=== PATIENT | male | born 1970 | race Caucasian/White ===

== ENCOUNTER 2019-08-25 17:32 | Emergency (ER) | payer BC ==
--- NOTE | 2019-08-25 19:41 | EDM.PDOC ---
ED HPI GENERAL MEDICAL PROBLEM - General Chief Complaint: Upper Extremity Injury/Pain Stated Complaint: BLOOD CLOT IN LEFT ARM Time Seen by Provider: 08/25/19 18:52 Source of Information: Reports: Patient History Limitations: Reports: No Limitations - History of Present Illness INITIAL COMMENTS - FREE TEXT/NARRATIVE: The patient presents with left arm pain and a blood clot in his arm. He said last night he started having an aching pain in his left upper arm. He does not remember injuring his arm in any way. He has no swelling. He has no fever, chills, cough, congestion, runny nose, chest pain or shortness of breath. He did feel anxious with this last night. 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 His also had a DVT. He was told it was superficial though and put on xarelto. He was looking for a second opinion. Onset: Sudden Duration: Day(s): (Last night) Location: Reports: Upper Extremity, Left (upper arm) Quality: Reports: Ache Severity: Moderate Improves with: Reports: None Worsens with: Reports: None Associated Symptoms: Reports: No Other Symptoms left upper arm Pain Score (Numeric/FACES): 6 - Related Data Allergies Allergy/AdvReac Type Severity Reaction Status Date / Time No Known Allergies Allergy Verified 08/25/19 18:10 Home Meds: Home Meds . [No Known Home Meds] 08/25/19 [History] Past Medical History Respiratory History: Reports: Sleep Apnea Hematologic History: Reports: Other (See Below) Other Hematologic History: factor 5 deficiency Social & Family History - Tobacco Use Smoking Status *Q: Never Smoker - Caffeine Use Caffeine Use: Reports: None - Recreational Drug Use Recreational Drug Use: No Review of Systems - Review of Systems Review Of Systems: See Below Constitutional: Reports: No Symptoms Eyes: Reports: No Symptoms Ears: Reports: No Symptoms Nose: Reports: No Symptoms Mouth/Throat: Reports: No Symptoms Respiratory: Reports: No Symptoms Cardiovascular: Reports: No Symptoms GI/Abdominal: Reports: No Symptoms Genitourinary: Reports: No Symptoms Musculoskeletal: Reports: Other (Left upper arm pain but no edema) ED EXAM, GENERAL - Physical Exam Exam: See Below Exam Limited By: No Limitations General Appearance: Alert, No Apparent Distress Ears: Normal External Exam Nose: Normal Inspection Head: Atraumatic, Normocephalic Neck: Normal Inspection, Supple, Non-Tender Respiratory/Chest: No Respiratory Distress, Lungs Clear, Normal Breath Sounds Cardiovascular: Regular Rate, Rhythm, No Edema, No Murmur GI/Abdominal: Soft, Non-Tender, No Organomegaly, No Mass Back Exam: Normal Inspection Extremities: Other (Mild pain upon palpation to the left upper inner arm. No palpable lesion noted. No edema in his left arm and good sensation and pulses distally.) Course - Vital Signs Last Recorded V/S: Last Vital Signs Temp 97.3 F 08/25/19 18:04 Pulse 60 08/25/19 18:04 Resp 19 08/25/19 18:04 BP 135/91 H 08/25/19 18:04 Pulse Ox 99 08/25/19 18:04 - Re-Assessments/Exams Free Text/Narrative Re-Assessment/Exam: 08/25/19 20:06 I was able to get the US report and it shows occlusive thrombus in the left basilic vein consistent with SVT. Otherwise the left internal jugular, subclavian, axillary, brachial, radial and ulnar veins are patent negative thrombus. The cephalic vein is also patent. I looked at the US myself and it appears the whole basilic vein is occluded. Given that and his history of factor V lieden in the family his PA today put him on xarelto. I feel that is the right call. I will have him follow up with Dr Morales. Departure - Departure Time of Disposition: 20:10 Disposition: Home, Self-Care 01 Condition: Good Clinical Impression: Superficial venous thrombosis of left arm - Discharge Information *PRESCRIPTION DRUG MONITORING PROGRAM REVIEWED*: No *COPY OF PRESCRIPTION DRUG MONITORING REPORT IN PATIENT NICK: No Referrals: Rolo Merrill MD [Primary Care Provider] - 1 Week Forms: ED Department Discharge Additional Instructions: Take the xarelto as prescribed. Follow up with Dr Morales within a week. Put warm or hot compresses on your arm 3 times per day for 2 days. Please return if you are worse such as more pain, swelling, chest pain or shortness of breath.
== END 2019-08-25 20:20 | disposition home or self-care (01) ==
LOC: JD.ED 17:32
DX: I82.612 Acute embolism and thrombosis of superficial veins of left upper extremity (principal)
CPT/HCPCS: 99282; 99283

== ENCOUNTER 2022-01-10 08:36 | Emergency (ER) | payer BC ==
[2022-01-10] MEDS ORDERED: Iopamidol 755 Mg/ML 100 ML Bottle IVPUSH ONE (10:06)
[2022-01-10] MEDS ORDERED: Sodium Chloride 0.9% 10 ML Syringe FLUSH PRN (10:06)
[2022-01-10] MEDS ORDERED: Sodium Chloride 0.9% 100 ML IV SCH (10:15)
== END 2022-01-10 12:35 | disposition home or self-care (01) ==
LOC: JD.ED 08:36
DX: R07.89 Other chest pain (principal); Z79.82 Long term (current) use of aspirin; Z20.822 Contact with and (suspected) exposure to COVID-19
CPT/HCPCS: 36415; 71045; 71275; 80053; 84484; 85025; 85610; 87635; 99285; Q9967; 93010; U0002